=== PATIENT | male | born 1955 | race Caucasian/White ===

== ENCOUNTER 2017-07-04 16:00 | Emergency (ER) | payer OTHER ==
[2017-07-04] MEDS: morphine 2 MG INJ IV (17:44)
[2017-07-04] MEDS: morphine 4 MG/ML VIAL IV (21:19)
== END 2017-07-04 22:38 | disposition home or self-care (01) ==
LOC: E/R 16:00
DX: S01.81XA Laceration without foreign body of other part of head, initial encounter (principal); S62.116A Nondisplaced fracture of triquetrum [cuneiform] bone, unspecified wrist, initial encounter for closed fracture; S70.12XA Contusion of left thigh, initial encounter; S09.90XA Unspecified injury of head, initial encounter; W11.XXXA Fall on and from ladder, initial encounter; Y92.9 Unspecified place or not applicable
CPT/HCPCS: 29125; 70450; 72125; 73110-LT; 73550; 96374; 96376; 99285-25

== ENCOUNTER 2017-07-11 09:08 | Emergency (ER) | payer OTHER ==
[2017-07-11] MEDS: DIPHTH/TET/ACEL PERTUSS (ADULT) 0.5 ML VIAL IM* (10:45)
[2017-07-11] MEDS: CEPHALEXIN 500 MG CAP PO (11:07)
== END 2017-07-11 11:48 | disposition home or self-care (01) ==
LOC: FTE 09:08
DX: S01.81XD Laceration without foreign body of other part of head, subsequent encounter (principal); W18.39XD Other fall on same level, subsequent encounter; Z23 Encounter for immunization; Z48.02 Encounter for removal of sutures
CPT/HCPCS: 90471; 90715; 99283-25